=== PATIENT | male | born 1985 | race Caucasian/White ===

== ENCOUNTER → 2019-07-24 10:23 | Outpatient (BNVA) | payer OTHER, SELFPAY | PROVIDERS: Family Provider Family Medicine; PCP Family Medicine; Referring Provider Family Medicine; Visit Provider Specialist | DX: M25.511 Pain in right shoulder (principal) | CPT/HCPCS: 73030 ==

== ENCOUNTER 2019-08-02 09:56 | Outpatient (CLI) | payer OTHER, SELFPAY ==
--- NOTE | 2019-08-02 10:08 | MR_ITS ---
WS: [id number] MRI RIGHT SHOULDER NONCONTRAST TECHNIQUE: Sagittal T2, coronal T1, T2 and proton density imaging. Axial gradient PDE imaging. CLINICAL INFORMATION: shoulder pain COMPARISON: None. FINDINGS: AC joint is normal in appearance. Mild downsloping of the acromion. Slight undersurface acromial spur ring. Mild edema at the AC joint. Prior healed right midclavicular fracture callus formation. Normal supraspinatus. Normal infraspinatus. Normal teres minor. Subscapularis is normal in appearance . No rotator cuff tears. Normal biceps tendon in the bicipital groove. Normal biceps labral anchor. G lenoid labrum is normal in appearance. Normal visualized soft tissues. No other significant findings. MR/MR shoulder RT wo con* [id number] IMPRESSION: 1. Normal AC joint with mild downsloping acromion. 2. Prior healed right clavicular fracture with callus formation. 3. Rotator cuff is normal in appearance. No rotator cuff tears. 4. Normal biceps tendon in the bicipital groove. Normal biceps labral anchor. 5. Normal visualized glenoid labrum.
== END 2019-08-02 09:57 | disposition home or self-care (01) ==
PROVIDERS: Family Provider Family Medicine; PCP Family Medicine; Visit Provider Specialist
DX: M25.511 Pain in right shoulder (principal)
CPT/HCPCS: 73221

== ENCOUNTER → 2019-08-16 12:32 | Outpatient (BNVA) | payer OTHER, SELFPAY | PROVIDERS: Family Provider Family Medicine; PCP Family Medicine; Referring Provider Family Medicine; Visit Provider Anesthesiology Pain Medicine | DX: M25.511 Pain in right shoulder (principal); M79.18 Myalgia, other site; Z79.891 Long term (current) use of opiate analgesic | CPT/HCPCS: 20553; 99204; J1030; J3490 ==

== ENCOUNTER → 2019-08-31 13:51 | Outpatient (BNVA) | payer OTHER, SELFPAY | PROVIDERS: Family Provider Family Medicine; PCP Family Medicine; Visit Provider Anesthesiology Pain Medicine | DX: M25.511 Pain in right shoulder (principal); M54.2 Cervicalgia | CPT/HCPCS: 20610; 77003; J1030; J2001; J3490 ==

== ENCOUNTER → 2019-09-14 09:08 | Outpatient (BNVA) | payer OTHER, SELFPAY | PROVIDERS: Family Provider Family Medicine; PCP Family Medicine; Visit Provider Anesthesiology Pain Medicine | DX: M54.2 Cervicalgia (principal); M25.511 Pain in right shoulder | CPT/HCPCS: 99213 ==

== ENCOUNTER → 2019-12-31 16:11 | Outpatient (BNVA) | payer OTHER, SELFPAY | PROVIDERS: Family Provider Family Medicine; PCP Family Medicine; Visit Provider Nurse Practitioner Family | DX: Z11.59 Encounter for screening for other viral diseases (principal); J06.9 Acute upper respiratory infection, unspecified | CPT/HCPCS: 87635 ==

== ENCOUNTER → 2021-05-11 10:33 | Outpatient (BNVA) | payer OTHER, SELFPAY | PROVIDERS: Family Provider Family Medicine; Visit Provider Surgery | DX: Z20.822 Contact with and (suspected) exposure to COVID-19 (principal) | CPT/HCPCS: 87635 ==

== ENCOUNTER 2021-05-15 07:13 | Day surgery (SDC) | payer OTHER, SELFPAY ==
[2021-05-12 15:43] VITALS: BMI 28.0
--- NOTE | 2021-05-15 07:32 | P.ANESASSM_ITS ---
Pre-Anesthetic Assessment Height/Weight: Height 1.93 m Weight 104.326 kg Operation Date: 05/15/21 08:30 Proposed Procedures p EGD Dilation W/ Balloon 46864 R13.10(Not Applicable) - Robby Luna MD Familial anesthetic complications: None Was Beta Juan Manuel taken within 24 hours: N/A Was Clonidine taken within 24 hours: N/A Social No alcohol and No tobacco Exam alert, oriented x 3, clear to auscultation bilaterally and regular rate & rhythm Airway Submandibular: within normal limits Cervical ROM: within normal limits Mallampati: Class II Dentition: full GI Gastroesophageal Reflux Disease Anesthetic Plan ASA status: 2 Anesthesia: MAC Medications/Allergies Home Medications Medication Instructions Recorded Confirmed Last Taken Type cholecalciferol (vitamin D3) 25 25 mcg PO DAILY 02/16/21 05/12/21 Unknown History mcg (1,000 unit) capsule pantoprazole 40 mg tablet,delayed 40 mg PO DAILY 05/12/21 05/12/21 Unknown History release (Protonix) Allergies Allergy/AdvReac Type Severity Reaction Status Date / Time No Known Allergies Allergy Verified 05/12/21 15:37 [facility] Anesthesia Medical History (Updated 02/16/21 @ 16:00 by Robby Luna MD) COVID-19 Surgical History History of appendectomy History of bunionectomy of both great toes History of colonoscopy History of endoscopy Status post LASIK surgery Family History Denies family history of Anesthesia complication Social History Smoking and tobacco status: never smoked Alcohol intake: current Alcohol intake frequency: holidays/special occasions o nly Data Anesthesia Cardiac Studies: No Data to Display
[2021-05-15 07:57] VITALS: BP 132/85; PULSE 63; RESP 18; TEMP 36.3; O2SAT 96
[2021-05-15] MEDS: sodium chloride 0.9% 1,000 ML 30 ML IV (08:08)
--- NOTE | 2021-05-15 08:51 | W.PM.OPSFHP ---
Same Day Surgery H&P Indication for Procedure/HPI DATE OF PROCEDURE: May 15, 2021 CHIEF COMPLAINT/INDICATIONFOR SURGICAL PROCEDURE: EGD with dilation PREOP DIAGNOSIS: upper gi symptoms PLANNED PROCEDURE: Operation Date: 05/15/21 08:30 Proposed Procedures p EGD Dilation W/ Balloon 29680 R13.10(Not Applicable) - Robby Luna MD Medications/Allergies* Home Medications Medication Instructions Recorded Confirmed Type cholecalciferol (vitamin D3) 25 25 mcg PO DAILY 02/16/21 05/15/21 History mcg (1,000 unit) capsule pantoprazole 40 mg tablet,delayed 40 mg PO DAILY 05/12/21 05/15/21 History release (Protonix) Allergies/Adverse Reactions Allergy/AdvReac Type Severity Reaction Status Date / Time No Known Allergies Allergy Verified 05/12/21 15:37 Current Medications: Generic Name Dose Route Start Last Admin Trade Name Freq PRN Reason Stop Dose Admin Sodium Chloride 1,000 mls @ 30 mls/hr 05/15/21 08:00 05/15/21 08:08 Sodium Chloride 0.9% IV 05/16/21 07:59 30 mls/hr .Q24H IVAN Administration Pertinent History/Comorbid Conditions* Medical History (Updated 02/16/21 @ 16:00 by Robby Luna MD) COVID-19 Surgical History (Updated 07/26/19 @ 08:29 by Areli Barrientos MD) History of appendectomy History of bunionectomy of both great toes History of colonoscopy History of endoscopy Status post LASIK surgery Family History (Updated 08/31/19 @ 14:24 by FLORES Mills) Denies family history of Anesthesia complication Social History Smoking and tobacco status: never smoked Alcohol intake: current Alcohol intake frequency: holidays/special occasions only Pertinent Exam Findings alert, oriented x 3 and regular rate & rhythm Recommendations Surgery/Procedure today Coding Level of Care Code Acute Apprentice Lineman Third Step for Rigog Odette
[2021-05-15 09:36] VITALS: BP 128/95; PULSE 67; RESP 14; TEMP 36.4; O2SAT 97
[2021-05-15 09:50] VITALS: BP 132/91; PULSE 59; RESP 16; O2SAT 99
--- NOTE | 2021-05-15 12:32 | ANE.PACU2 ---
Inpatient post-anesthesia follow up: Airway intact: Yes Vital signs: Temperature 97.5 F Pulse Rate 59 Respiratory Rate 16 Blood Pressure 132/91 Pulse Oximetry 99 Oxygen Delivery Me thod Room Air Oxygen Flow Rate 4 Fraction of Inspir ed Oxygen Hydration adequate: Yes Nausea and vomiting: No Pain level: 1 Mental status: Baseline
== END 2021-05-15 10:10 | disposition home or self-care (01) ==
PROVIDERS: Visit Provider Surgery
DX: R13.10 Dysphagia, unspecified (principal); K21.9 Gastro-esophageal reflux disease without esophagitis; Z86.16 Personal history of COVID-19
CPT/HCPCS: 43249; J2704; J7030

== ENCOUNTER 2021-05-30 07:36 | Emergency (ER) | payer OTHER, SELFPAY ==
[2021-05-30 07:49] VITALS: BP 148/102; PULSE 72; RESP 14; TEMP 36.9; O2SAT 96; BMI 28.0
--- NOTE | 2021-05-30 07:52 | ED_ITS ---
HPI - General Adult General: Chief complaint: General Medical Stated complaint: Sore throat Time Seen by Provider: 05/30/21 07:43 History of Present Illness: 36-year-old male complaining of a sore throat began overnight no fever sweats chills no vomiting or diarrhea is not had any cough. Onset (ago): hour(s) Location: mouth (Throat) Radiation: non-radiation Severity: mild Quality: burning Pain Consistency: constant Relieving factors: none Exacerbating factors: none Associated symptoms: Reports decreased appetite, headache(s) and malaise; Deny chest pain, confusion, cough, diaphoresis, dyspnea, fevers/chills, nausea, rash, palpitations, seizures, short of breath, syncope, vomiting or weakness Review of Systems Const: Reports: malaise; Denies: diaphoresis ENMT: Reports: throat pain, odynophagia and hoarseness; Denies: ear or mastoid pain, nasal discharge or nasal congestion Card: Denies: chest pain, palpitations or syncope Resp: Denies: dyspnea GI: Denies: nausea or vomiting : Denies: flank pain, dysuria, urinary frequency or urinary urgency Skin/Breast: Denies: rash Neuro: Reports: headache(s); Denies: confusion PFSH ED PFSH: Medical History (Updated 05/30/21 @ 08:26 by Gerardo Ward DO) COVID-19 Surgical History (Updated 05/15/21 @ 10:08 by Robby Luna MD) H/O esophagogastroduodenoscopy (05/15/21) With dilation History of appendectomy History of bunionectomy of both great toes History of colonoscopy History of endoscopy Status post LASIK surgery Family History Denies family history of Anesthesia complication Social History Smoking and tobacco status: never smoked Alcohol intake: current Alcohol intake frequency: holidays/special occasions only Physical Exam Const: COMMON NORMALS: no acute distress GENERAL APPEARANCE: cooperative and comfortable ORIENTATION/CONSCIOUSNESS: Yes awake, Yes oriented to person, Yes oriented to place and Yes oriented to time HENMT: COMMON NORMALS: normocephalic, atraumatic, hearing grossly normal bilaterally, external ears normal, EAC's normal, TM's normal bilaterally, Normal nasal mucous membranes and turbinates present and moist oral mucous membranes HEAD & SCALP: normocephalic and atraumatic NOSE: Normal nasal mucous membranes and turbinates present EXTERNAL EAR: Yes external ears normal EXTERNAL AUDITORY CANAL: EAC's normal TYMPANIC MEMBRANE: TM's normal bilaterally THROAT: posterior oropharynx abnormal edema and erythema; no exudates Eye: COMMON NORMALS: Equal, round and reactive pupils present, EOMs intact bilaterally, conjunctivae normal and no scleral icterus CONJUNCTIVA: Yes conjunctivae normal PUPIL: Yes Equal, round and reactive pupils present Neck/C-Spine: COMMON NORMALS: full ROM, no lymphadenopathy, supple and no JVD Lymph: LYMPHATIC: no lymphadenopathy noted and no lymphedema noted Resp: COMMON NORMALS: normal respiratory effort, No retractions, No use of accessory muscles and clear to auscultation bilaterally AUSCULTATION: clear to auscultation bilaterally Cardio: COMMON NORMALS: no JVD, regular rate, regular rhythm and No murmurs present (Cardio) RATE: regular rate RHYTHM: regular rhythm Extremity: COMMON NORMALS: normal to inspection, capillary refill normal, no clubbing, cyanosis or edema, no calf tenderness and no pedal edema Neuro: SENSORIUM/ORIENTATION: Yes oriented to person, Yes oriented to place and Yes oriented to time Skin: COMMON NORMALS: no rashes or lesions noted GENERAL SKIN EXAM: no rashes or lesions noted Course Vital Signs: Vital signs: Vital Signs Temperature 98.5 F 05/30/21 07:49 Pulse Rate 78 05/30/21 08:31 Respiratory Rate 16 05/30/21 08:08 Blood Pressure 128/93 05/30/21 08:31 Pulse Oximetry 94 05/30/21 08:31 [facility] - General Adult Medical Decision Making Minimal tonsillar swelling. No submandibular lymphadenopathy started on amoxicillin 875 twice daily 10 days follow-up as needed Medical Records I reviewed the patient's medical records. Discharge Plan Discharge Patient Disposition: Home Clinical Impression: Pharyngitis Condition: Stable Prescriptions: New amoxicillin 875 mg tablet 875 mg PO BID Qty: 20 0RF No Action cholecalciferol (vitamin D3) 25 mcg (1,000 unit) capsule 25 mcg PO DAILY 0RF pantoprazole [Protonix] 40 mg Tablet,Delayed Release (Dr/Ec) 40 mg PO DAILY 0RF Hold Instructions: Resume on 05/29/21. Protonix 40 mg tablet,delayed release (DR/EC) 40 mg PO BID Qty: 28 0RF Discharge Orders: Discharge ED (Routine); Ordered 05/30/21 Ordered By: Gerardo Ward Discharge Diet: Usual diet Patient Instructions: Opioid Safety Activity Restrictions/Additional Instructions: You were treated for pharyngitis with amoxicillin 1 p.o. twice daily x10 days complete the full course of antibiotics. If you have any worsening problems or persistence of your primary care doctor return to the emergency room. Coding Level of Care Code ED Elementary Vocal Music Teacher for Gm Pino
[2021-05-30 08:08] VITALS: BP 128/93; PULSE 66; RESP 16; O2SAT 94
[2021-05-30 08:31] VITALS: BP 128/93; PULSE 78; O2SAT 94
== END 2021-05-30 08:32 | disposition home or self-care (01) ==
PROVIDERS: Emergency Provider Family Medicine
DX: J02.9 Acute pharyngitis, unspecified (principal)
CPT/HCPCS: 99283

== ENCOUNTER 2021-09-10 15:46 | Emergency (ER) | payer OTHER, SELFPAY | END 2021-09-10 15:58 | disposition left against medical advice (07) | LOC: ER 15:47 | PROVIDERS: Emergency Provider Family Medicine | DX: Z53.21 Procedure and treatment not carried out due to patient leaving prior to being seen by health care provider (principal) ==

== ENCOUNTER 2022-02-11 11:50 | Emergency (ER) | payer OTHER, SELFPAY ==
[2022-02-11 11:56] VITALS: BP 141/97; PULSE 81; RESP 16; TEMP 37.2; O2SAT 94
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
[2022-02-11] MEDS: ketorolac 60 mg/2 mL INJ IM (13:56)
== END 2022-02-11 14:32 | disposition home or self-care (01) ==
PROVIDERS: Emergency Provider Nurse Practitioner Family
DX: S50.11XA Contusion of right forearm, initial encounter (principal); M62.838 Other muscle spasm; V89.2XXA Person injured in unspecified motor-vehicle accident, traffic, initial encounter
CPT/HCPCS: 70450; 71046; 72190; 73090; 96372; 99285; J1885

== ENCOUNTER 2022-10-13 07:11 | Outpatient (CLI) | payer OTHER, SELFPAY ==
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
== END 2022-10-13 07:12 | disposition home or self-care (01) ==
PROVIDERS: PCP Family Medicine; Visit Provider Family Medicine
DX: M25.512 Pain in left shoulder (principal); R93.6 Abnormal findings on diagnostic imaging of limbs; M25.412 Effusion, left shoulder
CPT/HCPCS: 73221

== ENCOUNTER 2022-11-08 20:00 | Outpatient (CLI) | payer OTHER, SELFPAY | END 2022-11-08 20:01 | disposition home or self-care (01) | LOC: SLEEP 11-09 06:26 | PROVIDERS: PCP Family Medicine; Visit Provider Family Medicine | DX: G47.33 Obstructive sleep apnea (adult) (pediatric) (principal) | CPT/HCPCS: 95811 ==

== ENCOUNTER → 2022-11-24 08:33 | Outpatient (BNVA) | payer OTHER, SELFPAY | PROVIDERS: PCP Family Medicine; Referring Provider Family Medicine; Visit Provider Specialist | DX: M19.012 Primary osteoarthritis, left shoulder | CPT/HCPCS: 20610; 73030; 99204; J1100; J2795; J3301 ==

== ENCOUNTER 2023-07-10 21:10 | Emergency (ER) | payer OTHER, SELFPAY ==
[2023-07-10 21:26] VITALS: BP 155/114; PULSE 96; RESP 22; TEMP 37.1; O2SAT 96; BMI 29.5
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
[2023-07-10] MEDS: cephALEXin 500 mg Capsule PO (22:46)
[2023-07-10] MEDS: ibuprofen 800 mg tablet PO (22:46)
[2023-07-10 22:55] VITALS: BP 155/114; PULSE 85; RESP 16; TEMP 37.1; O2SAT 98
== END 2023-07-10 22:56 | disposition home or self-care (01) ==
PROVIDERS: Emergency Provider Nurse Practitioner Family; PCP Family Medicine
DX: S61.511A Laceration without foreign body of right wrist, initial encounter (principal); W25.XXXA Contact with sharp glass, initial encounter
CPT/HCPCS: 12002; 99283

== ENCOUNTER 2023-09-08 14:47 | Emergency (ER) | payer OTHER, SELFPAY ==
[2023-09-08 14:54] VITALS: BP 141/118; PULSE 72; TEMP 37.1; O2SAT 95; BMI 29.5
--- NOTE | 2023-09-08 15:01 | XRR_ITS ---
PROCEDURE INFORMATION: Exam: XR Chest Exam date and time: 09/08/2023 3:11 PM Age: 38 years old Clinical indication: Dyspnea; Additional info: Dyspnea/cough, dizziness and weakness TECHNIQUE: Imaging protocol: Radiologic exam of the chest. Views: 1 view. COMPARISON: CR XR chest 2V* [id number] 02/11/2022 1:04 PM FINDINGS: Lungs: Unremarkable. No consolidation or mass. Pleural spaces: Unremarkable. No pleural effusion. No pneumothorax. Heart/Mediastinum: Unremarkable. No cardiomegaly. Bones/joints: Unremarkable. XR/XR chest 1V portable [id number] IMPRESSION: No acute findings.
--- NOTE | 2023-09-08 15:02 | ECG_ITS ---
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 Measurements Intervals [place] Rate: 60 P: 39 MD: 170 QRS: 45 QRSD: 87 T: 59 QT: 397 QTc: 399 Interpretive Statements SINUS RHYTHM No previous ECG available for comparison Electronically Signed On 09-08-2023 16:14:27 CDT by Rodri Damian M.D. [email or web address].[employer]/store/NU/[id number] f
--- NOTE | 2023-09-08 15:05 | ECG_ITS ---
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 Measurements Intervals [place] Rate: 60 P: 39 DC: 170 QRS: 45 QRSD: 87 T: 59 QT: 397 QTc: 399 Interpretive Statements SINUS RHYTHM No previous ECG available for comparison Electronically Signed On 09-08-2023 16:14:22 CDT by Rodri Damian M.D. [email or web address] hospitalOrbital Tractiontrumbull [facility] center.[employer]/store/NU/[id number] f
[2023-09-08 15:18] LABS: Basophils # 0.1 10^3/uL (0.0-0.1); Eosinophils # 0.3 10^3/uL (0.0-0.8); Eosinophils % 3.2 %; Hematocrit 48.6 % (37-53); Lymphocytes # 3.5 10^3/uL (0.8-4.8); Mean Corpuscular HGB Conc 34.2 g/dL (30-55); Mean Corpuscular Hemoglobin 30.1 pg (27-33); Mean Corpuscular Volume 88.2 fl (82-101); Mean Platelet Volume 11.9 fL (7.4-10.4); Monocytes # 0.7 10^3/uL (0.2-0.9); Monocytes % 7.2 %; Neutrophils # 4.81 10^3/uL (1.8-7.7); Neutrophils % 51.3 %; Nucleated Red Blood Cells % 0 %; Platelet Count 232 10^3/cmm (157-399); Red Blood Count 5.51 10^6/uL (3.85-5.65); White Blood Count 9.37 10^3/uL (3.29-11.43)
[2023-09-08 15:33] LABS: Alanine Aminotransferase 49 U/L (0-41); Albumin Level 4.3 g/dL (3.5-5.2); Alkaline Phosphatase 86 U/L (40-130); Anion Gap 15.8 (5-19); Aspartate Amino Transferase 28 U/L (0-40); Blood Urea Nitrogen 13 mg/dL (6-20); Calcium 9.3 mg/dL (8.5-10.5); Carbon Dioxide 26 mmol/L (22-29); Chloride 101 mmol/L (98-107); Creatinine Clr Calc Pharmacy 162.1991; Globulin 3.5 g/dL (1.3-4.6); Glomerular Filtration Rate 108.2 mL/min (90-130); Glucose 77 mg/dL (65-115); Osmolality Calculated 287 mOsm/kg (285-295); Potassium 3.8 mmol/L (3.5-5.1); Sodium 139 mmol/L (136-145); Total Bilirubin 0.7 mg/dL (0.15-1.2); Total Protein 7.8 g/dL (6.6-8.7)
[2023-09-08 16:01] LABS: Troponin(5th) Baseline < 6 ng/L (0-15)
[2023-09-08 16:02] VITALS: BP 142/94; PULSE 67; O2SAT 96
--- NOTE | 2023-09-08 16:15 | ED_ITS ---
HPI - Dizziness 2 General: Chief Complaint: Dizziness Stated Complaint: dizziness Time Seen by Provider: 09/08/23 15:01 History of Present Illness: HPI Narrative: 38-year-old male presents emergency room planing dizziness unsteady on his feet this been going on for the last few hours along with a headache prior to that he had a productive cough metallic taste in his mouth. Some nausea and vomiting several other family members have been sick. No visual change difficulty speaking or swallowing no head trauma. Associated symptoms: Denies chest pain or chills Review of Systems 2 Const: Denies: fever(s) or chills Card: Denies: chest pain Resp: Denies: dyspnea GI: Denies: abdominal pain : Denies: dysuria, urinary frequency or urinary urgency Musc: Denies: neck pain or back pain Skin/Breast: Denies: rash PFSH ED 2 PFSH: Medical History COVID-19 Surgical History H/O esophagogastroduodenoscopy (05/15/21) With dilation History of appendectomy History of bunionectomy of both great toes History of colonoscopy History of endoscopy Status post LASIK surgery Family History Denies family history of Anesthesia complication Social History Smoking and tobacco/nicotine status: never used tobacco/nicotine Alcohol intake: current Alcohol intake frequency: holidays/special occasions only Substance/Drug Use: never Physical Exam 2 Const: GENERAL APPEARANCE: cooperative and comfortable O RIENTATION/CONSCIOUSNESS: Yes awake, Yes oriented to person, Yes oriented to place and Yes oriented to time HENMT: COMMON NORMALS: normocephalic, atraumatic and hearing grossly normal bilaterally HEAD & SCALP: normocephalic and atraumatic Resp: COMMON NORMALS: normal respiratory effort, No retractions and No use of accessory muscles Cardio: COMMON NORMALS: regular rate, regular rhythm and No murmurs present (Cardio) RATE: regular rate RHYTHM: regular rhythm GI: COMMON NORMALS: Soft to palpation and No hepatosplenomegaly present A USCULTATION: Yes normoactive bowel sounds PALPATION: Yes Soft to palpation, No Tenderness to palpation present (GI), No Guarding due to palpation present (GI) and Yes No hepatosplenomegaly present Extremity: COMMON NORMALS: normal to inspection, capillary refill normal, no clubbing, cyanosis or edema, no calf tenderness and no pedal edema Neuro: SENSORIUM/ORIENTATION: Yes oriented to person, Yes oriented to place and Yes oriented to time OTHER: NIH 0 no focal neurologic deficits noted no ataxia Skin: COMMON NORMALS: no rashes or lesions noted GENERAL SKIN EXAM: no rashes or lesions noted Course 2 Vital Signs: Vital signs: Vital Signs Temperature 98.8 F 09/08/23 14:54 Pulse Rate 74 09/08/23 18:04 Respiratory Rate 24 H 09/08/23 18:04 Blood Pressure 143/56 09/08/23 18:04 Pulse Oximetry 96 09/08/23 18:04 Oxygen Delivery Me thod Room Air 09/08/23 14:54 MDM - Dizziness Medical Decision Making Dizziness with vertiginous-like symptoms. Has also had cough for the last 2 weeks moderately productive pain with headache no head trauma. Suspect viral upper respiratory infection he has no other focal neurologic deficits noted. Patient notes that if he lays still with his eyes closed his symptoms are resolved will resolve. They are reproducible with head movement and sitting up. Will discharge patient home with steroid taper albuterol promethazine as needed. He is feeling somewhat better after fluids. Chest x-ray was negative. Medical Records I reviewed the patient's medical records. Lab Data I reviewed the patient's lab results. 09/08/23 14:40 09/08/23 14:40 Radiology Impressions Chest X-Ray 09/08/23 15:01 IMPRESSION: No acute findings. Laboratory Results WBC 9.37 10^3/uL (3.29-11.43) 09/08/23 14:40 RBC 5.51 10^6/uL (3.85-5.65) 09/08/23 14:40 Hgb 16.60 g/dL (11.27-16.99) 09/08/23 14:40 Hct 48.6 % (37-53) 09/08/23 14:40 MCV 88.2 fl (82-101) 09/08/23 14:40 MCH 30.1 pg (27-33) 09/08/23 14:40 MCHC 34.2 g/dL (30-55) 09/08/23 14:40 RDW 13.0 % (12.1-15.1) 09/08/23 14:40 Plt Count 232 10^3/cmm (157-399) 09/08/23 14:40 MPV 11.9 fL (7.4-10.4) H 09/08/23 14:40 Neut % (Auto) 51.3 % 09/08/23 14:40 Lymph % (Auto) 37.0 % 09/08/23 14:40 Hitchcock % (Auto) 7.2 % 09/08/23 14:40 Eos % (Auto) 3.2 % 09/08/23 14:40 Baso % (Auto) 1.0 % 09/08/23 14:40 Neut # (Auto) 4.81 10^3/uL (1.8-7.7) 09/08/23 14:40 Lymph # (Auto) 3.5 10^3/uL (0.8-4.8) 09/08/23 14:40 Hitchcock # (Auto) 0.7 10^3/uL (0.2-0.9) 09/08/23 14:40 Eos # (Auto) 0.3 10^3/uL (0.0-0.8) 09/08/23 14:40 Baso # (Auto) 0.1 10^3/uL (0.0-0.1) 09/08/23 14:40 Nucleated RBC % (auto) 0 % 09/08/23 14:40 Nucleated RBCs # 0.0 /100WBC 09/08/23 14:40 Sodium 139 mmol/L (136-145) 09/08/23 14:40 Potassium 3.8 mmol/L (3.5-5.1) 09/08/23 14:40 Chloride 101 mmol/L (98-107) 09/08/23 14:40 Carbon Dioxide 26 mmol/L (22-29) 09/08/23 14:40 Anion Gap 15.8 (5-19) 09/08/23 14:40 BUN 13 mg/dL (6-20) 09/08/23 14:40 Creatinine 0.8 mg/dL (0.7-1.2) 09/08/23 14:40 GFR Calculation 108.2 mL/min (90-130) 09/08/23 14:40 Glucose 77 mg/dL (65-115) 09/08/23 14:40 Calculated Osmolality 287 mOsm/kg (285-295) 09/08/23 14:40 Calcium 9.3 mg/dL (8.5-10.5) 09/08/23 14:40 Total Bilirubin 0.7 mg/dL (0.15-1.2) 09/08/23 14:40 AST 28 U/L (0-40) 09/08/23 14:40 ALT 49 U/L (0-41) H 09/08/23 14:40 Alkaline Phosphatase 86 U/L (40-130) 09/08/23 14:40 Troponin T Baseline < 6 ng/L (0-15) 09/08/23 14:40 Troponin T 120 Minute 6.00 ng/L (0-15) 09/08/23 16:53 Delta Troponin T 0.12810 ABS# (0-10) 09/08/23 16:53 Total Protein 7.8 g/dL (6.6-8.7) 09/08/23 14:40 Albumin 4.3 g/dL (3.5-5.2) 09/08/23 14:40 Globulin 3.5 g/dL (1.3-4.6) 09/08/23 14:40 Urine Color Yellow (Yellow) 09/08/23 16:12 Urine Appearance Clear (CLEAR) 09/08/23 16:12 Urine pH 5 (5-7) 09/08/23 16:12 Ur Specific [place] 1.015 (1.005-1.030) 09/08/23 16:12 Urine Protein Neg (Negative) 09/08/23 16:12 Urine Glucose (UA) Norm (Normal) 09/08/23 16:12 Urine Ketones Negative (Negative) 09/08/23 16:12 Urine Blood Neg (Negative) 09/08/23 16:12 Urine Nitrate Negative (Negative) 09/08/23 16:12 Urine Bilirubin Neg (Negative) 09/08/23 16:12 Urine Urobilinogen Norm mg/dL (Negative) 09/08/23 16:12 Ur Leukocyte Esterase Negative (Negative) 09/08/23 16:12 All radiology interpretation(s) finalized by discharge Discharge Plan Discharge Patient Disposition: Home Clinical Impression: Viral pneumonia Condition: Stable Prescriptions: New promethazine 25 mg tablet 25 mg PO Q6H PRN (Reason: headache) Qty: 20 0RF Medrol (Ramon) 4 mg tablets,dose pack See Rx Instructions .ROUTE .COMPLEX Qty: 21 0RF Rx Instructions: orally per package directions albuterol sulfate 90 mcg/actuation HFA aerosol inhaler 2 inh INHALATION Q4H PRN (Reason: shortness of breath or wheezing) Qty: 18 0RF No Action cholecalciferol (vitamin D3) 25 mcg (1,000 unit) capsule 25 mcg PO DAILY pantoprazole [Protonix] 40 mg Tablet,Delayed Release (Dr/Ec) 40 mg PO DAILY Hold Instructions: Resume on 05/29/21. Protonix 40 mg tablet,delayed release (DR/EC) 40 mg PO BID Qty: 28 0RF cyclobenzaprine 10 mg tablet 10 mg PO TID PRN (Reason: muscle spasm) Qty: 10 0RF ibuprofen 800 mg tablet 800 mg PO Q6H PRN (Reason: pain) Qty: 20 0RF Discharge Orders: Discharge ED (Routine); Ordered 09/08/23 Ordered By: Gerardo Ward Referrals: Loly Underwood MD [Primary Care Provider] - Discharge Diet: Usual diet Discharge Activity: Resume usual activity Patient Instructions: Opioid Safety, Pain Management Activity Restrictions/Additional Instructions: Thank you for choosing [facility] for your healthcare needs today. It is very important that you follow up as instructed or that you return to the Emergency Department should you have concerns or if your condition changes or worsens in any way. You were seen today with cough and headache. Your chest x-ray was normal your white count was normal there is a respiratory panel that is still pending. Based on your exam and your history laboratory and x-ray findings suspect you have a viral upper respiratory infection. You are given a steroid taper to use as well as albuterol. You are also given promethazine to use as needed for headaches. 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
[2023-09-08 16:32] LABS: Add Urine Microscopic? NO; Charge for UA Resulting for Rev
--- NOTE | 2023-09-08 17:02 | ECG_ITS ---
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 Measurements Intervals [place] Rate: 57 P: 30 PA: 171 QRS: 39 QRSD: 91 T: 47 QT: 417 QTc: 409 Interpretive Statements SINUS BRADYCARDIA Compared to ECG 09/08/2023 15:05:22 Sinus rhythm no longer present Electronically Signed On 09-09-2023 0:41:38 CDT by Rodri Damian M.D. [email or web address] regional medical [email or web address] medical specialty hospital - boardman, inc.[employer]/store/OM/[id number]
[2023-09-08 17:05] LABS: Bilirubin Urine Neg (Negative); Blood Urine Neg (Negative); Glucose Urine UA Norm (Normal); Ketones Urine Negative (Negative); Leukocyte Esterase Urine Negative (Negative); Nitrate Urine Negative (Negative); Protein Urine Neg (Negative); Specific Gravity, Urine 1.015 (1.005-1.030); Urine Appearance Clear (CLEAR); Urine Color Yellow (Yellow); Urobilinogen Urine Norm (Negative); pH Urine 5 (5-7)
[2023-09-08 17:17] LABS: Troponin 5 2HR Delta 0.00001 ABS# (0-10)
[2023-09-08] MEDS: dexamethasone 10 mg/mL INJ IM (17:19)
[2023-09-08] MEDS: ketorolac 30 mg/mL INJ IVP (17:19)
[2023-09-08] MEDS: sodium chloride 0.9% 1,000 ML 999 ML IV (17:20)
[2023-09-08 18:04] VITALS: BP 143/56; PULSE 74; RESP 24; O2SAT 96
[2023-09-08 18:30] VITALS: BP 143/56; PULSE 74; RESP 24; O2SAT 96
[2023-09-08 19:45] LABS: Adenovirus Not Detected (NOT DETECT); Chlamydia Pneumoniae Not Detected (NOT DETECT); Coronavirus 229E,HKU1,NL63,OC4 Not Detected (NOT DETECT); Human Metapneumovirus Not Detected (NOT DETECT); Human Rhinovirus/Enterovirus Not Detected (NOT DETECT); Influenza A Not Detected (NOT DETECT); Influenza A H1 Not Detected (NOT DETECT); Influenza A H1-2009 Not Detected (NOT DETECT); Influenza A H3 Not Detected (NOT DETECT); Influenza B Not Detected (NOT DETECT); Mycoplasma Pneumoniae Not Detected (NOT DETECT); Parainfluenza Virus Type 1 Not Detected (NOT DETECT); Parainfluenza Virus Type 2 Not Detected (NOT DETECT); Parainfluenza Virus Type 3 Not Detected (NOT DETECT); Parainfluenza Virus Type 4 Not Detected (NOT DETECT); Respiratory Syncytial Virus A Not Detected (NOT DETECT); Respiratory Syncytial Virus B Not Detected (NOT DETECT); SARS-COV-2 Not Detected (NOT DETECT)
--- NOTE | 2023-09-12 13:01 | PC.SOCIAL ---
Records faxed to [facility].
== END 2023-09-08 18:32 | disposition home or self-care (01) ==
PROVIDERS: Emergency Provider Family Medicine; PCP Family Medicine
DX: J12.9 Viral pneumonia, unspecified (principal)
CPT/HCPCS: 36415; 71045; 80053; 81003; 84484; 85025; 87486; 87581; 87633; 93005; 96374; 99285; J1100; J1885; J7030

== ENCOUNTER 2023-11-29 20:00 | Outpatient (CLI) | payer OTHER, SELFPAY | END 2023-11-29 20:01 | disposition home or self-care (01) | LOC: SLEEP 11-30 04:32 | PROVIDERS: PCP Family Medicine; Visit Provider Specialist | DX: G47.33 Obstructive sleep apnea (adult) (pediatric) (principal) | CPT/HCPCS: 95810 ==

== ENCOUNTER 2024-08-10 16:04 | Outpatient (CLI) | payer OTHER, SELFPAY ==
--- NOTE | 2024-08-10 16:10 | USCV_ITS ---
Sly Giuseppe Age: 39 Gender: M : 1985 Exam Date: 08/10/2024 16:14 Ordering Phys: Clau Hayes Technologist: REEN Exam Location: [facility] [place] Indication: memory loss Risk Factors: Previous Vascular Surgery: Right Brachial BP: / Left Brachial BP: / Right Left Velocity (cm/s) Spectral Plaque Velocity (cm/s) Spectral Plaque Syst/Diast Broadening Syst/Diast Broadening 93.20/ 19.30 Prox CCA 84.00 / 17.20 94.20/ 21.20 Mid CCA 95.90 / 19.00 86.90/ 23.00 Distal CCA 85.00 / 26.10 41.40/ 13.20 Prox ICA 37.00 / 14.80 50.20/ 20.00 Mid ICA 50.20 / 21.90 61.10/ 26.90 Distal ICA 59.30 / 22.50 76.00 ECA 67.00 0.50 ICA/CCA 0.40 Antegrade Vertebral Antegrade 33.70/ 10.40 cm/s 49.90/ 12.60 cm/s Tri Subclavian Tri 82.60 92.70 CONCLUSIONS Intimal thickening in the common carotid arteries and internal carotid arteries bilaterally. Right ICA stenosis <50%. Left ICA stenosis <50%. Normal antegrade Doppler flow noted in the right vertebral artery. Normal antegrade Doppler flow noted in the left vertebral artery. Andrei Tolentino MD (Electronically Signed) Final Date: 13 Aug 2024 10:50 S
== END 2024-08-10 16:05 | disposition home or self-care (01) ==
PROVIDERS: PCP Family Medicine; Visit Provider Nurse Practitioner
DX: I65.23 Occlusion and stenosis of bilateral carotid arteries (principal)
CPT/HCPCS: 93880

== ENCOUNTER 2024-08-13 08:03 | Outpatient (CLI) | payer OTHER, SELFPAY ==
--- NOTE | 2024-08-13 08:09 | US_ITS ---
WS: [id number] RIGHT UPPER QUADRANT ULTRASOUND HISTORY: ELEVATED LIVER ENZYMES COMPARISON: None available. Liver: 16.4 cm in length. Normal size liver with mild hepatic steatosis. Portal Vein: Normal forward flow with the velocity is decreased. Gallbladder: Normally distended gallbladder with no stones or wall thickening. CBD: 0.3 cm Pancreas: Not visualized well. Right kidney: 10.2 cm in length. Normal size and echogenicity. No hydronephrosis or mass. Aorta and IVC: Unremarkable abdominal aorta and IVC. No ascites. US/US abdomen limited [id number] IMPRESSION: 1. No cholelithiasis. 2. Hepatic steatosis.
== END 2024-08-13 08:04 | disposition home or self-care (01) ==
PROVIDERS: PCP Family Medicine; Visit Provider Family Medicine
DX: Z01.89 Encounter for other specified special examinations (principal); K76.0 Fatty (change of) liver, not elsewhere classified
CPT/HCPCS: 76705